=== PATIENT | male | born 1995 | race Two or more races ===

== ENCOUNTER → 2017-06-26 | Outpatient (CLI) | payer BC ==
--- NOTE | 2017-06-26 16:37 | KCIC ---
MR of the right knee Indication: Effusion. Patella tendon repair 2016. Locking last week. Technique: The standard multiplanar sequences are obtained. COMPARISON: Findings: Medial meniscus:Intact. Lateral meniscus: Intact. Anterior cruciate ligament: Intact Posterior cruciate ligament: Intact Medial collateral ligament: Intact. Iliotibial band: Intact. Posterolateral structures: Fibular collateral ligament, biceps tendon and popliteus tendon are intact. Extensor mechanism: Mild signal and thickening of the proximal patellar tendon has developed since the prior study. No evidence of acute tear. Mild edema within the infrapatellar fat. There is some mild signal within the lower pole of the patella probably a screw anchor, with minimal surrounding marrow edema. Fluid: Trace joint fluid. Articular cartilage -patellofemoral joint:Intact -medial compartment:Intact -lateral compartment:Intact Bones: No significant lesion or acute fracture. Soft tissue: There is is small soft tissue ganglion or cyst anterior to the medial joint compartment Impression: 1. Proximal patellar tendon demonstrates evidence of tendinosis versus postsurgical scarring. No acute tear. 2. No evidence of meniscal tear or internal derangement. Electronically signed by: Robin Alfaro MD (06/26/2017 4:34 PM) [id number]
== END | disposition home or self-care (01) ==
LOC: KCIC MRI 15:30
PROVIDERS: ATTEND Orthopaedic Surgery
DX: M25.461 Effusion, right knee (principal)
CPT/HCPCS: 73721